=== PATIENT | female | born 1995 | race Caucasian/White ===

== ENCOUNTER → 2018-03-19 | Outpatient (CLI) | payer MEDICAID ==
--- NOTE | 2018-03-19 09:41 | NOWCEV ---
[facility]EL[facility]INIC EVALUATION AND LETTER OF JUSTIFICATION Patient Name: ALVIN PEDERSEN Physician: Ann Boatengal Date: 03/19/18 Therapist: Alecia Matta PT,MSPT Date of : 1995 MR#: [id number] MOM Contact: Sherrie Fair (mother) Subscriber: ALVIN PEDERSEN Primary Ins: [employer] Subscriber #: [id number] EVALUATION FINDINGS Medical history - Alvin is a 22y/o female with complex PMH significant for atypical Rett syndrome, epilepsy, developmental disability, obstructive sleep apnea, severe intellectual disabilities, and dilated aortic root. She has h/o prolonged hospitalization for pneumonia. Alvin has been a dependent wheelchair/stroller user for the majority of her life, and her current tilt-in- space custom MWC is showing age related deterioration. She was referred to this clinic by her doctor to have recommendations made for the most medically appropriate MWC to replace her current chair. Functional Mobility - Alvin is non-ambulatory, even with an AD such as a walker or cane. Her mother reports that she can take 2-3 steps with max Ax2 for trunk control. To complete transfers, Alvin requires max A x2 where one caregiver holds her legs and the other lifts from her shoulders/trunk to transition her from one surface to another. Alvin requires max A x2 for all supine to/from sit transitions. She is unable to perform any self wheelchair propulsion due to severe cognitive involvement, and poor motor control. Head/Trunk control - Alvin has severely impaired trunk control. She requires assistance of two people to maintain unsupported sitting. She is able to hold her head up unsupported for periods of time, but frequently rests it to the side or back against the back of her chair. Motor involvement - Alvin presents with severely dystonic/ataxic movement patterns throughout her body. She frequently moves her arms and legs in large unorganized patterns, and extends her trunk pushing her hips to the edge of her seat, allowing her legs to hang below her chair behind her foot plates. She demonstrates anti-gravity strength throughout her extremities with observed movement patterns. Unable to formally assess MMT due to severe cognitive involvement and absent command following. She does not have notable limitations in ROM in her UEs or LEs. Posture - Alvin has a level pelvis, but sits with her trunk extended and her pelvis pushed to the edge of her seat if not controlled by her seating system. Her trunk frequently rests to the L and her head is rotated to the R, although she has full cervical ROM. Her LE's frequently hang down off the edge of her chair with her feet touching the floor. She changes positions frequently via dystonic movements patterns. Additionally she frequently flings her trunk forward. Her mother reports that if her chest strap is not donned, she has attempted to throw herself forward onto the floor. She frequently sits with her legs abducted and her pelvis rotated to one side. Skin /Sensation - Alvin has a h/o skin breakdown when she was in the hospital with pneumonia. She has not had any skin breakdown when with her caregivers in the home. Alvin is incontinent of bowel and bladder, which is managed with briefs. Endurance - Alvin is up in either her wqps-es-aqrbz MWC or stroller throughout the day. ADLs - Alvin is dependent for all ADLs including dressing, bathing and feeding. Cognitive/Social - Alvin has severe cognitive impairment. She is non-verbal and is not able to follow commands or make her needs known. She has 24/7 assistance from her family. She lives in a w/c accessible home. Current wheelchair - Alvin currently utilizes a dvlq-gg-lwbls MWC in the home and stroller for assisted community access. Her current rnht-vj-bidkb MWC is 5 years old and is showing age related deterioration. The tilt function no longer works properly, and the chair is now too narrow for Alvin as she has gained weight. Due to this, the laterals on the chair no longer fit around her body. MEDICAL and FUNCTIONAL NEED/OBJECTIVES To replace Alvin's zhsb-lh-haxvu MWC and seating system which is 5 years old and no longer meeting her needs due to weight gain and deterioration of the equipment. This is requires to provide Alvin with safe assisted access to MRADLs in the home. EQUIPMENT RECOMMENDATIONS AND JUSTIFICATIONS The following recommendations are believed to be the most cost effective way to meet the patients medical and functional needs. * Pdpv-yy-tmaca MWC: Needed to replace Alvin's current kvij-aj-wlwrg MWC which is 5 years old, showing age related deterioration, and no longer fits, as she has gained weight over the past several years. Alvin is not able to ambulate, even with an AD such as a walker or cane. She is not able to maintain sitting balance in a std MWC, light weight MWC, or ultra light weight MWC due to severely imapired postural reactions, and dystonic movements. A tilt -in-space model is required to provide Alvin with postural support and to prevent her from pushing her hips forward in her chair or throwing her chest forward. Additionally, the uffo-rv-vbxmp is necessary for caregivers to provide Alvin with regular pressure relief throughout the day, as Alvin is unable to perform independent pressure relief. * Anti-thrust cushion: Needed to prevent Alvin from pushing her hips forward off the edge of her chair, which creates a significant safety concerns. This cannot be accomplished without a custom cushion. An off the shelf cushion would lead to considerable safety concerns and not provide Alvin with enough postural support to maintain an upright position in her chair, and would not provide appropriate pressure distribution, as Alvin is in her chair for the majority of the day. * Adductor pads with removable mount: Needed to stabilize Alvin in a neutral position when in her chair. * Angle adjustable foot plates: Needed to Provide Alvin with LE support in order to maintain an upright position in her chair. The angle adjustable foot plate is needed to place the foot plate in a position of comfort to promote Alvin keeping her feet on the foot plates. * Rigid shoe holders: Needed to maintain Alvin's feet on her foot plates, as without the shoe holders she pulls her feet off the foot plates causing her to slide forward in her chair leading to safety concerns and increased risk of skin breakdown. * Posterior positioning back rest with swing away laterals: Needed to work in conjunction with Alvin's seat cushion to provide her with postural support and control. A custom back rest with laterals is warranted as Alvin has absent postural control and responses, and relies fully on her seating system to maintain an upright posture in her chair. An off the shelf back rest would not provide Alvin with adequate support, and would lead to safety concerns and place her at risk for skin breakdown. * Calf panel: Needed to prevent safety issues by preventing Alvin from moving her legs backward under when chair when being pushed if her feet come off her foot plates. * Head rest with removable mount: Needed to provide Alvin with head support and control when utilizing the ritc-sp-bunjp function on her chair. The removable mount is necessary so that the head rest can be removed for assisted ADLs. * Height adjustable arm rests: Needed to provide Alvin with postural support. The elevated height is necessary to attach her try at the appropriate height for assisted ADLs, such as feeding, from a w/c level. * Padded pelvic belt: Needed to provide safety and prevent Alvin from sliding forward in her chair. * Chest strap: Needed to provide Alvin with postural support, and to prevent her from falling forward/pushing her trunk forward in her chair. Alvin falls forward out of her chair without the chest strap. * Flat free inserts: Needed to limit maintenance on Alvin's chair to limit caregiver burden. * Transit hooks: Needed to provide safety when Alvin is being transported in her chair to attend medical appointments and when accessing the community. * Tray: Needed to allow Alvin's caregivers to assist with activities such as feeding, as well as self care tasks from a wheelchair level. These recommendations are based on the likelihood that Alvin will require the use of a manual pnbe-lm-uxqgp wheelchair for assisted mobility and access to MRADLs in the home for the rest of her life. If you have any questions or concerns regarding the stated recommendations, please feel free to contact the therapist at . Thank you for your cooperation in obtaining the necessary equipment for this patient. PANFILO Mandujano
== END ==
DX: G40.319 Generalized idiopathic epilepsy and epileptic syndromes, intractable, without status epilepticus (principal); M62.81 Muscle weakness (generalized); R62.50 Unspecified lack of expected normal physiological development in childhood; R41.89 Other symptoms and signs involving cognitive functions and awareness; R56.9 Unspecified convulsions
CPT/HCPCS: 97162-GP